=== PATIENT | female | born 1970 | race American Indian/Alaskan Native ===

== ENCOUNTER 2019-02-07 08:43 | Observation (INO) | payer BC ==
[2019-02-07 09:59] LABS: Hematocrit 38.5 % (30.3-42.9); Hemoglobin 13.4 gm/dl (10.1-14.3); Mean Corpuscular HGB Conc 35 % (30-34); Mean Corpuscular Volume 86 fl (79-97); Platelet Count 296 K/mm3 (140-440); Red Blood Count 4.46 M/mm3 (3.65-5.03); Red Cell Distribution Width 13.2 % (13.2-15.2)
--- NOTE | 2019-02-07 10:12 | Emergency Department Report ---
HPI - General Chief Complaint: Chest Pain Time Seen by Provider: 02/07/19 09:12 - [facility] HPI: Room 3 The patient is a 48-year-old female presenting with chief complaint of chest pain. Patient started having chest pain yesterday described as substernal int ermittent sharpness and pressure. Patient missed a shortness of breath with chest pain but denies nausea/vomiting or diaphoresis. The patient states the pain worsened approximately 1.5 hours ago. Patient currently gets her chest pain score 4/10. Patient also complains of numbness to bilateral upper extremities. The patient states she's never had a stress test or cardiac catheterization. Patient received aspirin 324 mg Location: [See above] Duration: [See above] Quality: [See above] Severity: [See above] Timing: [See above] Context: [See above] Modifying factors: [See above] Associated signs and symptoms: [see above] ED Past Medical Hx - Past Medical History Hx Hypertension: Yes - Surgical History Additional Surgical History: L wrist. hysterectomy - Family History Family history: no significant - Social History Smoking Status: Never Smoker Substance Use Type: None (denies illicit drug use), Alcohol (occasional) ED Review of Systems ROS: Stated complaint: CHEST PAIN/SOB Other details as noted in HPI Constitutional: denies: diaphoresis Eyes: denies: eye pain ENT: denies: throat pain Respiratory: shortness of breath Cardiovascular: chest pain Endocrine: no symptoms reported Gastrointestinal: denies: nausea, vomiting Genitourinary: denies: dysuria Musculoskeletal: denies: back pain Neurological: paresthesias Physical Exam - Physical Exam Vital Signs: Vital Signs 02/07/19 09:01 Temperature 98.1 F Pulse Rate 77 Respiratory 20 Rate Blood Pressure 152/85 [Left] O2 Sat by Pulse 96 Oximetry Physical Exam: GENERAL: The patient is well-developed well-nourished female sitting on stretcher not appearing to be in acute distress. [] HEENT: Normocephalic. Atraumatic. Extraocular motions are intact. Patient has moist mucous membranes. NECK: Supple. Trachea midline CHEST/LUNGS: Clear to auscultation. There is no respiratory distress noted. HEART/CARDIOVASCULAR: Regular. There is no tachycardia. There is no gallop rub or murmur. ABDOMEN: Abdomen is soft, nontender. Patient has normal bowel sounds. There is no abdominal distention. SKIN: There is no rash. There is no diaphoresis. NEURO: The patient is awake, alert, and oriented. The patient is cooperative. The patient has normal speech MUSCULOSKELETAL: There is no evidence of acute injury. ED Course Vital Signs 02/07/19 09:01 Temperature 98.1 F Pulse Rate 77 Respiratory 20 Rate Blood Pressure 152/85 [Left] O2 Sat by Pulse 96 Oximetry ED Medical Decision Making - Lab Data Result diagrams: 02/07/19 09:40 02/07/19 09:40 Laboratory Tests 02/07/19 02/07/19 09:40 09:40 WBC 5.8 RBC 4.46 Hgb 13.4 Hct 38.5 MCV 86 MCH 30 MCHC 35 H RDW 13.2 Plt Count 296 Lymph % (Auto) Drugless Doctor Seg Neutrophils % Drugless Doctor Sodium 143 Potassium 4.0 Chloride 105.6 Carbon Dioxide 23 Anion Gap 18 BUN 13 Creatinine 0.5 L Estimated GFR > 60 BUN/Creatinine Ratio 26 Glucose 112 H Calcium 9.0 Total Creatine Kinase 104 CK-MB (CK-2) 1.6 CK-MB (CK-2) Rel Index 1.5 Troponin T < 0.010 NT-Pro-B Natriuret Pep 10.81 - EKG Data -: EKG Interpreted by Me EKG shows normal: sinus rhythm Rate: normal - EKG Data When compared to previous EKG there are: previous EKG unavailable Interpretation: nonspecific ST-T wave jane (discussed with Dr. Cade- early repolarization leads 1, aVL, V6) - Radiology Data Radiology results: report reviewed (chest x-ray), image reviewed (chest x-ray) interpreted by me: Chest x-ray-no focal infiltrates, no pneumothorax [facility] [address] [place] [address] XRay Report Signed Patient: ASHLEY HERNADEZ MR#: [id number] : 1970 Acct:[id number] Age/Sex: 48 / F ADM Date: 02/07/19 Loc: ED Attending Dr: Ordering Physician: HOUSTON KWOK MD Date of Service: 02/07/19 Procedure(s): XR chest 1V ap Accession Number(s): [id number] cc: HOUSTON KWOK MD Fluoro Time In Minutes: CHEST 1 VIEW INDICATION / CLINICAL INFORMATION: chest pain. COMPARISON: None available. FINDINGS: SUPPORT DEVICES: None. HEART / MEDIASTINUM: No significant abnormality. LUNGS / PLEURA: No significant pulmonary or pleural abnormality. No pneumothorax. ADDITIONAL FINDINGS: No significant additional findings. IMPRESSION: 1. No acute findings. Signer Name: Ryley Avilez MD Signed: 02/07/2019 10:36 AM Workstation Name: [id number] Transcribed By: BC Dictated By: Ryley Avilez MD Electronically Authenticated By: Ryley Avilez MD Signed Date/Time: 02/07/19 1036 DD/ 1036 TD/TT: - Differential Diagnosis ACS, pericarditis, GERD Critical care attestation.: If time is entered above; I have spent that time in minutes in the direct care of this critically ill patient, excluding procedure time. ED Disposition Clinical Impression: Chest pain Disposition: -09 OP ADMIT IP TO THIS HOSP Is pt being admited?: Yes Does the pt Need Aspirin: No Condition: Fair Instructions: Chest Pain (ED) Referrals: PRIMARY CARE, [Primary Care Provider] - 3-5 Days Time of Disposition: 11:15 (hospitalist paged (Dr Velasco))
[2019-02-07 10:19] LABS: BUN/Creatinine Ratio 26; Blood Urea Nitrogen 13 mg/dL (7-17); Creatine Kinase MB 1.6 ng/mL (0.0-4.0); Hemolysis Index 8
--- NOTE | 2019-02-07 10:40 | XRay Report ---
CHEST 1 VIEW INDICATION / CLINICAL INFORMATION: chest pain. COMPARISON: None available. FINDINGS: SUPPORT DEVICES: None. HEART / MEDIASTINUM: No significant abnormality. LUNGS / PLEURA: No significant pulmonary or pleural abnormality. No pneumothorax. ADDITIONAL FINDINGS: No significant additional findings. IMPRESSION: 1. No acute findings. Signer Name: Ryley Avilez MD Signed: 02/07/2019 10:36 AM Workstation Name: [id number]
[2019-02-07 11:46] LABS: Total Cells Counted 100
[2019-02-07 11:47] LABS: Platelet Estimate Consistent w Auto; RBC Morphology Normal
[2019-02-07] MEDS ORDERED: SODIUM CHLORIDE 0.9% 1000 ML 1,000 ML IV SCH (16:45)
[2019-02-07] MEDS ORDERED: oxyCODONE /ACETAMINOPHEN 5-325MG TAB PO PRN (16:45)
[2019-02-07] MEDS ORDERED: ONDANSETRON 4 MG/2 ML INJ IV PRN (16:45)
[2019-02-07] MEDS ORDERED: HYDROmorphone 1 MG/1 ML INJ IV PRN (16:45)
[2019-02-07] MEDS ORDERED: IBUPROFEN 600 MG TAB PO PRN (16:45)
[2019-02-07] MEDS ORDERED: ACETAMINOPHEN 325 MG TAB PO PRN (16:45)
--- NOTE | 2019-02-07 16:45 | History and Physical Report ---
History of Present Illness Date of examination: 02/07/19 Date of admission: 02/07/19 11:18 Chief complaint: Chest pain since yesterday evening. History of present illness: 48-year-old female with history of hypertension comes in for retrosternal chest pain since yesterday. Started in the evening. Chest pain is intermittent in nature. No diaphoresis no palpitations. No syncope. This is the first episode of retrosternal chest pain. This is dull to sharp. Intermittent in nature. No exacerbating or relieving factors. Pain is for a scale of 1-10. Patient also complains of numbness in bilateral upper extremities. No nausea no vomiting. Patient never had a stress test or cardiac cath. Patient is here aspirin 325 mg once a day. Past Medical History Hypertension: Yes Surgical History Additional Surgical History: L wrist. hysterectomy Family History Family history: no significant Social History Smoking Status: Never Smoker Substance Use Type: None (denies illicit drug use), Alcohol (occasional) Review of Systems ROS: Stated complaint: CHEST PAIN/SOB Other details as noted in HPI Constitutional: denies: diaphoresis Eyes: denies: eye pain ENT: denies: throat pain Respiratory: shortness of breath Cardiovascular: chest pain Endocrine: no symptoms reported Gastrointestinal: denies: nausea, vomiting Genitourinary: denies: dysuria Musculoskeletal: denies: back pain Neurological: paresthesias 14 point review of systems-- otherwise negative. Medications and Allergies Allergies Allergy/AdvReac Type Severity Reaction Status Date / Time Sulfa (Sulfonamide Allergy Unknown Verified 02/07/19 11:33 Antibiotics) Exam - Constitutional Vitals: Temp Pulse Resp BP Pulse Ox 98.1 F 73 19 141/76 99 02/07/19 09:01 02/07/19 12:45 02/07/19 12:45 02/07/19 12:45 02/07/19 12:30 General appearance: Present: no acute distress, well-nourished - EENT Eyes: Present: PERRL ENT: hearing intact, clear oral mucosa - Neck Neck: Present: supple, normal ROM - Respiratory Respiratory effort: normal Respiratory: bilateral: CTA - Cardiovascular Heart Sounds: Present: S1 & S2. Absent: rub, click - Extremities Extremities: pulses symmetrical, No edema Peripheral Pulses: within normal limits - Abdominal General gastrointestinal: Present: soft, non-tender, non-distended, normal bowel sounds Female genitourinary: Present: normal - Integumentary Integumentary: Present: clear, warm, dry - Musculoskeletal Musculoskeletal: gait normal, strength equal bilaterally - Psychiatric Psychiatric: appropriate mood/affect, intact judgment & insight - Neurologic Neurologic: CNII-XII intact, moves all extremities - Allied Health Allied health notes reviewed: nursing, case management Results - Labs CBC & Chem 7: 02/08/19 05:43 02/08/19 05:43 Labs: Laboratory Last Values WBC 5.8 K/mm3 (4.5-11.0) 02/07/19 09:40 RBC 4.46 M/mm3 (3.65-5.03) 02/07/19 09:40 Hgb 13.4 gm/dl (10.1-14.3) 02/07/19 09:40 Hct 38.5 % (30.3-42.9) 02/07/19 09:40 MCV 86 fl (79-97) 02/07/19 09:40 MCH 30 pg (28-32) 02/07/19 09:40 MCHC 35 % (30-34) H 02/07/19 09:40 RDW 13.2 % (13.2-15.2) 02/07/19 09:40 Plt Count 296 K/mm3 (140-440) 02/07/19 09:40 Lymph % (Auto) Furniture Painter 02/07/19 09:40 Add Manual Diff Complete 02/07/19 09:40 Total Counted 100 02/07/19 09:40 Seg Neutrophils % Furniture Painter 02/07/19 09:40 Seg Neuts % (Manual) 36.0 % (40.0-70.0) L 02/07/19 09:40 Band Neutrophils % 0 % 02/07/19 09:40 Lymphocytes % (Manual) 51.0 % (13.4-35.0) H 02/07/19 09:40 Reactive Lymphs % (Man) 1.0 % 02/07/19 09:40 Monocytes % (Manual) 7.0 % (0.0-7.3) 02/07/19 09:40 Eosinophils % (Manual) 3.0 % (0.0-4.3) 02/07/19 09:40 Basophils % (Manual) 2.0 % (0.0-1.8) H 02/07/19 09:40 Metamyelocytes % 0 % 02/07/19 09:40 Myelocytes % 0 % 02/07/19 09:40 Promyelocytes % 0 % 02/07/19 09:40 Blast Cells % 0 % 02/07/19 09:40 Nucleated RBC % Not Reportable 02/07/19 09:40 Seg Neutrophils # Man 2.1 K/mm3 (1.8-7.7) 02/07/19 09:40 Band Neutrophils # 0.0 K/mm3 02/07/19 09:40 Lymphocytes # (Manual) 3.0 K/mm3 (1.2-5.4) 02/07/19 09:40 Abs React Lymphs (Man) 0.1 K/mm3 02/07/19 09:40 Monocytes # (Manual) 0.4 K/mm3 (0.0-0.8) 02/07/19 09:40 Eosinophils # (Manual) 0.2 K/mm3 (0.0-0.4) 02/07/19 09:40 Basophils # (Manual) 0.1 K/mm3 (0.0-0.1) 02/07/19 09:40 Metamyelocytes # 0.0 K/mm3 02/07/19 09:40 Myelocytes # 0.0 K/mm3 02/07/19 09:40 Promyelocytes # 0.0 K/mm3 02/07/19 09:40 Blast Cells # 0.0 K/mm3 02/07/19 09:40 WBC Morphology Not Reportable 02/07/19 09:40 Hypersegmented Neuts Not Reportable 02/07/19 09:40 Hyposegmented Neuts Not Reportable 02/07/19 09:40 Hypogranular Neuts Not Reportable 02/07/19 09:40 Smudge Cells Not Reportable 02/07/19 09:40 Toxic Granulation Not Reportable 02/07/19 09:40 Toxic Vacuolation Not Reportable 02/07/19 09:40 Dohle Bodies Not Reportable 02/07/19 09:40 Pelger-Huet Anomaly Not Reportable 02/07/19 09:40 Aline Rods Not Reportable 02/07/19 09:40 Platelet Estimate Consistent w auto 02/07/19 09:40 Clumped Platelets Not Reportable 02/07/19 09:40 Plt Clumps, EDTA Not Reportable 02/07/19 09:40 Large Platelets Not Reportable 02/07/19 09:40 Giant Platelets Not Reportable 02/07/19 09:40 Platelet Satelliting Not Reportable 02/07/19 09:40 Plt Morphology Comment Not Reportable 02/07/19 09:40 RBC Morphology Normal 02/07/19 09:40 Dimorphic RBCs Not Reportable 02/07/19 09:40 Polychromasia Not Reportable 02/07/19 09:40 Hypochromasia Not Reportable 02/07/19 09:40 Poikilocytosis Not Reportable 02/07/19 09:40 Anisocytosis Not Reportable 02/07/19 09:40 Microcytosis Not Reportable 02/07/19 09:40 Macrocytosis Not Reportable 02/07/19 09:40 Spherocytes Not Reportable 02/07/19 09:40 Pappenheimer Bodies Not Reportable 02/07/19 09:40 Sickle Cells Not Reportable 02/07/19 09:40 Target Cells Not Reportable 02/07/19 09:40 Tear Drop Cells Not Reportable 02/07/19 09:40 Ovalocytes Not Reportable 02/07/19 09:40 Helmet Cells Not Reportable 02/07/19 09:40 Concepcion-Warba Bodies Not Reportable 02/07/19 09:40 Mcdonough Rings Not Reportable 02/07/19 09:40 [place] Cells Not Reportable 02/07/19 09:40 Bite Cells Not Reportable 02/07/19 09:40 Crenated Cell Not Reportable 02/07/19 09:40 Elliptocytes Not Reportable 02/07/19 09:40 Acanthocytes (Spur) Not Reportable 02/07/19 09:40 Rouleaux Not Reportable 02/07/19 09:40 Hemoglobin C Crystals Not Reportable 02/07/19 09:40 Schistocytes Not Reportable 02/07/19 09:40 Malaria parasites Not Reportable 02/07/19 09:40 Lul Bodies Not Reportable 02/07/19 09:40 Hem Pathologist Commnt No 02/07/19 09:40 Sodium 143 mmol/L (137-145) 02/07/19 09:40 Potassium 4.0 mmol/L (3.6-5.0) 02/07/19 09:40 Chloride 105.6 mmol/L (98-107) 02/07/19 09:40 Carbon Dioxide 23 mmol/L (22-30) 02/07/19 09:40 Anion Gap 18 mmol/L 02/07/19 09:40 BUN 13 mg/dL (7-17) 02/07/19 09:40 Creatinine 0.5 mg/dL (0.7-1.2) L 02/07/19 09:40 Estimated GFR > 60 ml/min 02/07/19 09:40 BUN/Creatinine Ratio 26 % 02/07/19 09:40 Glucose 112 mg/dL (65-100) H 02/07/19 09:40 Calcium 9.0 mg/dL (8.4-10.2) 02/07/19 09:40 Total Creatine Kinase 104 units/L (30-135) 02/07/19 09:40 CK-MB (CK-2) 1.6 ng/mL (0.0-4.0) 02/07/19 09:40 CK-MB (CK-2) Rel Index 1.5 (0-4) 02/07/19 09:40 Troponin T < 0.010 ng/mL (0.00-0.029) 02/07/19 09:40 NT-Pro-B Natriuret Pep 10.81 pg/mL (0-450) 02/07/19 09:40 - Imaging and Cardiology EKG: report reviewed (NSR 70/min No acute St t wave changes) Chest x-ray: report reviewed (NAF) Assessment and Plan Advance Directives: Yes (Full code) VTE prophylaxis?: Chemical Plan of care discussed with patient/family: Yes - Patient Problems (1) Chest pain Current Visit: Yes Status: Acute Qualifiers: Chest pain type: unspecified Qualified Code(s): R07.9 - Chest pain, unspecified Plan to address problem: Chest pain protocol Serial Troponins Stress test in AM (2) HTN (hypertension) Current Visit: Yes Status: Chronic Qualifiers: Hypertension type: essential hypertension Qualified Code(s): I10 - Essential (primary) hypertension Plan to address problem: Cont antihpertensives (3) DVT prophylaxis Current Visit: Yes Status: Acute Plan to address problem: On Heparin and GI prophylaxis
[2019-02-07] MEDS: FAMOTIDINE 20 MG/2 ML INJ IV SCH (22:04)
[2019-02-08 06:14] LABS: Hematocrit 38.9 % (30.3-42.9); Hemoglobin 13.2 gm/dl (10.1-14.3); Mean Corpuscular HGB Conc 34 % (30-34); Mean Corpuscular Volume 88 fl (79-97); Platelet Count 290 K/mm3 (140-440); Red Blood Count 4.41 M/mm3 (3.65-5.03); Red Cell Distribution Width 12.8 % (13.2-15.2)
[2019-02-08 06:31] LABS: Alanine Aminotransferase 9 units/L (7-56); Albumin 3.6 g/dL (3.9-5); BUN/Creatinine Ratio 22; Blood Urea Nitrogen 13 mg/dL (7-17); Calcium 8.5 mg/dL (8.4-10.2); Hemolysis Index 2
[2019-02-08 06:59] LABS: Eosinophils % (Manual) 0 % (0.0-4.3); Total Cells Counted 100
[2019-02-08 07:00] LABS: Large Platelets Few; Platelet Estimate Consistent w Auto; RBC Morphology Normal
[2019-02-08] MEDS ORDERED: REGADENOSON 0.4 MG/5 ML INJ IV ONE ×2 (07:57→08:03)
[2019-02-08] MEDS: FAMOTIDINE 20 MG/2 ML INJ IV SCH (12:13)
[2019-02-08 13:11] VITALS: BP 123/71
--- NOTE | 2019-02-08 14:59 | Treadmill Report ---
THALLIUM STRESS TEST LEFT VENTRICLE: Left ventricular chamber size is within normal spread. Perfusion study demonstrates homogeneous uptake of the tracer in all segments, no defects identified. Gated analysis demonstrates normal left ventricular systolic function, ejection fraction 73%. CONCLUSION: Normal myocardial perfusion study. JOB# [id number] CA/NTS
[2019-02-08] MEDS ORDERED: LISINOPRIL 10 MG TAB PO SCH (15:00)
--- NOTE | 2019-02-08 16:59 | Discharge Summary ---
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 Patient also complains of numbness in bilateral upper extremities. No nausea no vomiting. Patient never had a stress test or cardiac cath. Discharge diagnosis: / Chest pain - possible anxiety attack vs GERD Normal Serial Troponins, Stress test was normal / HTN (hypertension), Cont antihpertensives Disposition: - TO HOME OR SELFCARE Time spent for discharge: 34 minutes Core Measure Documentation - Palliative Care Palliative Care/ Comfort Measures: Not Applicable - Core Measures Any of the following diagnoses?: none Exam - Constitutional Vitals: Temp Pulse Resp BP Pulse Ox 97.6 F 88 18 123/71 99 02/08/19 12:56 02/08/19 12:56 02/08/19 12:56 02/08/19 12:56 02/08/19 12:56 General appearance: Present: no acute distress, well-nourished - EENT Eyes: Present: PERRL ENT: hearing intact, clear oral mucosa - Neck Neck: Present: supple, normal ROM - Respiratory Respiratory effort: normal Respiratory: bilateral: CTA - Cardiovascular Heart Sounds: Present: S1 & S2. Absent: rub, click - Extremities Extremities: pulses symmetrical, No edema Peripheral Pulses: within normal limits - Abdominal General gastrointestinal: Present: soft, non-tender, non-distended, normal bowel sounds - Integumentary Integumentary: Present: clear, warm, dry - Musculoskeletal Musculoskeletal: gait normal, strength equal bilaterally - Psychiatric Psychiatric: appropriate mood/affect, intact judgment & insight - Neurologic Neurologic: CNII-XII intact, moves all extremities Plan Activity: advance as tolerated Weight Bearing Status: Weight Bear as Tolerated Diet: low fat, low salt Follow up with: PRIMARY CARE, [Primary Care Provider] - 3-5 Days Prescriptions: Pantoprazole [Protonix] 40 mg PO QDAY #30 tablet
--- NOTE | 2019-02-08 18:51 | Consultation ---
History of Present Illness Consult date: 02/08/19 Consult reason: chest pain History of present illness: Patient is a 48-year-old woman who presented with atypical, poorly characterized chest pain. ECG was normal sinus rhythm, normal ECG with no ischemic changes. Chest x-ray revealed normal cardiac silhouette, clear lungs, no infiltrates or edema. Serial troponin levels were normal. The patient underwent an exercise thallium stress test today during which [place] I 9 minutes of Sathya protocol, there was no chest pain, no ST changes of ischemia. Thallium images were normal. Past History Past Medical History: hypertension Medications and Allergies Allergies Allergy/AdvReac Type Severity Reaction Status Date / Time Sulfa (Sulfonamide Allergy Unknown Verified 02/07/19 11:33 Antibiotics) Home Medications Medication Instructions Recorded Confirmed Last Taken Type Pantoprazole [Protonix] 40 mg PO QDAY #30 tablet 02/08/19 Unknown Rx lisinopriL [Zestril TAB] 10 mg PO ONCE 02/08/19 02/08/19 Unknown History Review of Systems Cardiovascular: chest pain, no orthopnea, no palpitations, no rapid/irregular heart beat, no edema, no syncope, no lightheadedness, no shortness of breath Physical Examination Vital Signs Temp Pulse Resp BP Pulse Ox 98.1 F 77 20 152/85 96 02/07/19 09:01 02/07/19 09:01 02/07/19 09:01 02/07/19 09:01 02/07/19 09:01 General appearance: no acute distress HEENT: Positive: PERRL Neck: Positive: neck supple Cardiac: Positive: Reg Rate and Rhythm Lungs: Positive: clear to auscultation Neuro: Positive: Grossly Intact Abdomen: Positive: Soft Female genitourinary: deferred Skin: Positive: Clear Extremities: Absent: edema Results 02/08/19 05:43 02/08/19 05:43 Cardiac Enzymes 02/08/19 Range/Units 05:43 AST 13 (5-40) units/L CBC 02/08/19 Range/Units 05:43 WBC 4.6 (4.5-11.0) K/mm3 RBC 4.41 (3.65-5.03) M/mm3 Hgb 13.2 (10.1-14.3) gm/dl Hct 38.9 (30.3-42.9) % Plt Count 290 (140-440) K/mm3 Comprehensive Metabolic Panel 02/08/19 Range/Units 05:43 Sodium 141 (137-145) mmol/L Potassium 4.3 (3.6-5.0) mmol/L Chloride 106.9 (98-107) mmol/L Carbon Dioxide 23 (22-30) mmol/L BUN 13 (7-17) mg/dL Creatinine 0.6 L (0.7-1.2) mg/dL Glucose 98 (65-100) mg/dL Calcium 8.5 (8.4-10.2) mg/dL AST 13 (5-40) units/L ALT 9 (7-56) units/L Alkaline Phosphatase 55 (35-129) units/L Total Protein 6.8 (6.3-8.2) g/dL Albumin 3.6 L (3.9-5) g/dL EKG interpretations - Telemetry EKG Rhythm: Sinus Rhythm Assessment and Plan - Patient Problems (1) Chest pain Status: Acute Qualifiers: Chest pain type: unspecified Qualified Code(s): R07.9 - Chest pain, unspecified Plan to address problem: Chest pain is atypical, ECG, cardiac enzymes and exercise thallium stress test all normal. No further cardiac chest pain workup is indicated, stable for cardiac discharge.
[2019-02-09] MEDS ORDERED: LISINOPRIL 10 MG TAB PO SCH (10:00)
--- NOTE | 2019-02-12 15:21 | Treadmill Report ---
ORDERING PHYSICIAN: Lee Velasco MD INDICATION: Chest pain. FINDINGS: There is no scintigraphic evidence of myocardial ischemia. The left ventricle is normal in size. The left ventricular ejection fraction is measured at 73%. There is normal wall motion and wall thickening on gated imaging. CONCLUSION: Normal perfusion scan. JOB# [id number] AKIndra/NTS
== END 2019-02-08 18:08 | disposition home or self-care (01) ==
LOC: ED 08:43 → 4A 11:18
PROVIDERS: ADMIT Internal Medicine; ATTEND Internal Medicine
DX: R07.89 Other chest pain (principal); I10 Essential (primary) hypertension; Z90.710 Acquired absence of both cervix and uterus; Z98.890 Other specified postprocedural states
CPT/HCPCS: 36415; 71045; 78452; 80048; 80053; 82550; 82553; 83036; 83880; 84484; 85007; 85025; 93005; 93010; 93017; 96374; 96376; 99284; A9502; G0378; J7030; J2785